=== PATIENT | male | born 1995 | race Two or more races ===

== ENCOUNTER 2018-05-19 15:28 | Emergency (ER) | payer BC ==
[~2018-05-19] VITALS: Ht 165.1 cm; Wt 81.2 kg
--- NOTE | 2018-05-19 15:35 | NUR ---
PT BIB [facility], RT ANKLE INJURY FROM PLAYING BASKETBALL. + DEFORMITY, PT IS AAOX4, NOT IN RESPIRATORY DISTRESS, V/S STABLE, HOOKED TO MONITOR, KEPT RESTED AND COMFORTABLE.
[2018-05-19] MEDS ORDERED: PROPOFOL 20 ML IV ONE (15:40)
--- NOTE | 2018-05-19 15:40 | NUR ---
[facility] AT BEDSIDE FOR XRAY OF R FOOT.
--- NOTE | 2018-05-19 15:44 | NUR ---
1ST DOSE 100MG PROFOPOL GIVEN, PRE VS TAKEN AND RECORDED.
--- NOTE | 2018-05-19 15:45 | NUR ---
2ND DOSE PROPOFOL GIVEN, CLOSED REDUCTION ONGOING.
--- NOTE | 2018-05-19 15:47 | NUR ---
SUCCESSFUL CLOSED REDUCTION, POST V/S TAKEN AND RECORDED. SHORT POSTERIOR CAST DONE BY [facility].
--- NOTE | 2018-05-19 15:58 | NUR ---
[facility] AT [facility] FOR POST PROCEDURE XRAY.
[2018-05-19] MEDS ORDERED: PROPOFOL 200 MG/20 ML VIAL IV ONE (16:00)
--- NOTE | 2018-05-19 16:20 | NUR ---
[facility] WAS CALLED. WAS PAGED
--- NOTE | 2018-05-19 16:52 | NUR ---
[facility] CALLED. WAS PAGED AGAIN
[2018-05-19] MEDS ORDERED: IBUPROFEN 400 MG TABLET PO ONE (17:00)
[2018-05-19] MEDS ORDERED: IBUPROFEN 600 MG TABLET PO ONE (17:14)
--- NOTE | 2018-05-19 17:25 | NUR ---
PT IS WHEELED TO CT SCAN VIA [facility].
--- NOTE | 2018-05-19 18:32 | NUR ---
IV removed. Catheter intact and site benign. Pressure and 4x4 applied to site. No bleeding noted. Patient discharged to home in stable condition. Written and verbal after care instructions given. Patient verbalizes understanding of instruction.
[2018-05-19 18:33] VITALS: BP 144/76
== END 2018-05-19 18:35 | disposition home or self-care (01) ==
LOC: ER 15:30
DX: S93.04XA Dislocation of right ankle joint, initial encounter (principal); X50.1XXA Overexertion from prolonged static or awkward postures, initial encounter; Y93.67 Activity, basketball; Y92.310 Basketball court as the place of occurrence of the external cause; Y99.8 Other external cause status
CPT/HCPCS: 27840; 73610 ×2; 73700; 99152; 99285; J2704; J7030 ×2; G0500